=== PATIENT | male | born 1975 | race Caucasian/White ===

== ENCOUNTER 2023-01-19 08:31 | Outpatient (CLI) | payer OTHER ==
[2023-01-19] MEDS ORDERED: Magnevist 469MG/ML 20 ML VIAL ONE (10:11)
== END 2023-01-19 08:32 | disposition home or self-care (01) ==
LOC: CSHMRI 08:31
PROVIDERS: ATTEND Student in an Organized Health Care Education/Training Program
DX: H90.3 Sensorineural hearing loss, bilateral (principal); H61.892 Other specified disorders of left external ear
CPT/HCPCS: 70553

== ENCOUNTER 2024-06-17 10:44 | Outpatient (CLI) | payer OTHER ==
[2024-06-17] MEDS ORDERED: Magnevist 469MG/ML 20 ML VIAL ONE (13:09)
== END 2024-06-17 10:45 | disposition home or self-care (01) ==
LOC: CSHMRI 10:44
PROVIDERS: ATTEND Nurse Practitioner
DX: D33.3 Benign neoplasm of cranial nerves (principal); Z98.890 Other specified postprocedural states
CPT/HCPCS: 70553